=== PATIENT | female | born 1955 | race Two or more races ===

== ENCOUNTER 2023-05-03 18:39 | Emergency (ER) | payer MEDICAID, OTHER ==
[~2023-05-03] VITALS: Ht 157.5 cm; Wt 59.1 kg
[2023-05-03 20:03] LABS: Basophils # (auto) 0 10 ^3/uL (0-0.2); Eosinophils # (auto) 0 10 ^3/uL (0-0.8); Hemoglobin 10.1 g/dL (12.2-16.2); Mean Corpuscular Hgb Conc. 30.8 g/dL (32.0-36.0); Monocytes # (auto) 0.9 10 ^3/uL (0-1.3)
[2023-05-03 20:06] LABS: Basophils % (auto) 0.4 % (0.0-2.0); Hematocrit 32.8 % (36.0-46.0); Lymphocytes # (auto) 0.8 10 ^3/uL (0.4-5.4); Lymphocytes % (auto) 9.6 % (10.0-50.0); Mean Corpuscular Hemoglobin 27.3 pg (28.0-32.0); Mean Corpuscular Volume 88.6 fL (80.0-100.0); Monocytes % (auto) 10.8 % (0.0-12.0); Neutrophils # (auto) 6.3 10 ^3/uL (1.6-8.6); Neutrophils % (auto) 79.2 % (37.0-80.0); Nucleated Red Blood Cells % 0.1 %; Red Cell Distribution Width 16.5 % (11.8-14.3)
[2023-05-03 20:24] LABS: Alanine Aminotransferase 17 U/L (7-40); Albumin 4.2 g/dL (3.2-4.8); Alkaline Phosphatase 73 U/L (46-116); Anion Gap 9 (5-15); Aspartate Aminotransferase 21 U/L (13-40); BUN/Creatinine Ratio 20.9 (10.0-20.0); Bilirubin, Total 0.3 mg/dL (0.2-1.0); Blood Urea Nitrogen 14 mg/dL (9-23); Calcium 9.2 mg/dL (8.5-10.1); Carbon Dioxide 23 mmol/L (20-30); Chloride 104 mmol/L (98-107); Glucose 100 mg/dL (74-106); Sodium 136 mmol/L (136-145); Total Protein 6.7 g/dL (5.7-8.2)
[2023-05-04 00:31] VITALS: BP 132/69; PULSE 89; RESP 14; TEMP 97.6; O2SAT 96
== END 2023-05-04 00:31 | disposition home or self-care (01) ==
LOC: EDBD 18:39 → ER 18:39
DX: R55 Syncope and collapse (principal); M79.10 Myalgia, unspecified site; I10 Essential (primary) hypertension; M19.90 Unspecified osteoarthritis, unspecified site
CPT/HCPCS: 36415; 71045; 80053; 83605; 83880; 84484; 85025; 93005